=== PATIENT | male | born 1950 | race Caucasian/White ===

== ENCOUNTER 2018-08-13 20:03 | Emergency (ER) | payer MEDICARE ==
[~2018-08-13] VITALS: Ht 172.7 cm; Wt 90.7 kg
--- OUTSIDE RECORDS SUMMARY | ~2018-08-13 | XMS | Clinical Summary ---
Demographics + + + | Address | [address] | | | [place] [address] | + + + | Home Phone | | + + + | Preferred Language | Unknown | + + + | Marital Status | Unknown | + + + | Rastafari Affiliation | Unknown | + + + | Race | Unknown | + + + | Ethnic Group | Unknown | + + + Author + + + | Author | NON REVENUE LOCATIONS | + + + | Organization | NON REVENUE LOCATIONS | + + + | Address | Unknown | + + + | Phone | Unavailable | + + + Care Team Providers + +------+ + | Care Confectionery Drops Machine Operator Name | Role | Phone | + +------+ + PP | Unavailable | + +------+ + Source Comments CI[facility]RA is fully live on both [facility] and [facility] Allergies Not on File Medications Not on file Active Problems Not on file Social History + +-------+ +--------+------+ | Tobacco Use | Types | Packs/Day | Years | Date | | | | | Used | | + +-------+ +--------+------+ | Never Assessed | | | | | + +-------+ +--------+------+ + + + | Sex Assigned at | Date Recorded | | | | + + + | Not on file | | + + + + + + + | Job Start Date | Occupation | Industry | + + + + | Not on file | Not on file | Not on file | + + + + + + + + | Travel History | Travel Start | Travel End | + + + + + + | No recent travel history available. | + + Plan of Treatment + + + + + | Health Maintenance | Due Date | Last Done | Comments | + + + + + | Pneumococcal | | | | | vaccination (1 of 2 | 4 | | | | - PCV13) | | | | + + + + + | Influenza (Flu) | | | | | vaccination (Season | 9 | | | | Ended) | | | | + + + + + Results Not on filefrom Last 3 Months"
--- OUTSIDE RECORDS SUMMARY | ~2018-08-13 | XMS | Encounter Summary ---
Demographics + + + | Address | [address] | | | [place] [address] | + + + | Home Phone | | + + + | Preferred Language | Unknown | + + + | Marital Status | Unknown | + + + | Scientology Affiliation | Unknown | + + + | Race | Unknown | + + + | Ethnic Group | Unknown | + + + Author + + + | Author | [facility] | + + + | Organization | [facility] | + + + | Address | Unknown | + + + | Phone | Unavailable | + + + Care Team Providers + +------+ + | Care Parking Lot Chauffeur Name | Role | Phone | + +------+ + PCP | Unavailable | + +------+ + Encounter Details +--------+ + + + + | Date | Type | Department | Care Team | Description | +--------+ + + + + | 04/28/ | Outside | Neurophysiology | Jono Schwab DO | | | 2008 | Referral | EEG at [facility] [address] | [address] | | | | Order | [facility] | [place], [place] | | | | | Road Mailcode: | [address] | | | | | [address] | | | | | | [facility] | | | | | | [place], [place] | | | | | | [address] | | | | | | [phone] | | | +--------+ + + + + Social History + +-------+ +--------+------+ | Tobacco [...] recent travel history available. | + + documented as of this encounter Plan of Treatment Not on filedocumented as of this encounter Procedures + +--------+ + + + | Procedure Name | Priori | Date/Time | Associated Diagnosis | Comments | | | ty | | | | + +--------+ + + + | EEG ROUTINE | Routin | 04/28/2008 | | Results for this | | | e | | | procedure are in the | | | | | | results section. | + +--------+ + + + documented in this encounter Results EEG ROUTINE (04/28/2008) + + | Specimen | + + | | + + + + + | Narrative | Performed At | + + + | Patient Name: Sanjiv Markham Date of : 1950 Medical | | | Record Number: [id number] Date of Test: 04/28/2008 ROUTINE EEG | | | done at [facility] to evaluate for periodic movement. | | | Detail: With the patient awake, the backgroudn contained mostly | | | moderate amplitude, rhythmic, symmetric posterior rhythm contained | | | much moderate amplitude symmetric 16-20 hz activity consistent with | | | drug effect (alprazolam). There was some irregular that frequency | | | activity that increased during drowsiness but was consistently higher | | | in amplitude over the right temporal region. In addition, over the | | | right temporal region, there were occasional single sharp waves, | | | maximal and with phase reversal at F8, often with an aftergoing slow | | | waves. Impression: Abnormal EEG because of occasional right | | | temporal interictal epileptiform discharges and occasional right | | | temporal slowing. The EEG pattern raises the possibility of a | | | localization-related epilepsy. Davin Salas M.D. Professor, | | | Department of Neurology Clinical Neurophysiology Department | | + + + documented in this encounter Visit Diagnoses Not on filedocumented in this encounter"
--- OUTSIDE RECORDS SUMMARY | ~2018-08-13 | XMS | Encounter Summary ---
Demographics + + + | Address | [address] | | | [place] [address] | + + + | Home Phone | | + + + | Preferred Language | Unknown | + + + | Marital Status | Unknown | + + + | Tenriism Affiliation | Unknown | + + + | Race | Unknown | + + + | Ethnic Group | Unknown | + + + Author + + + | Author | [facility] | + + + | Organization | [facility] | + + + | Address | Unknown | + + + | Phone | Unavailable | + + + Care Team Providers + +------+ + | Care Solution Coordinator Name | Role | Phone | + +------+ + PCP | Unavailable | + +------+ + Encounter Details +--------+ + + + + | Date | Type | Department | Care Team | Description | +--------+ + + + + | 04/28/ | Outside | Neurophysiology | Jono Schwab DO | | | 2008 | Referral | EEG at [facility] [address] | [address] | | | | Order | [facility] | [place], [place] | | | | | Road Mailcode: | [address] | | | | | [address] | | | | | | [facility] | | | | | | [place], [place] | | | | | | [address] | | | | | | [phone] | | | +--------+ + + + [...] 1950 Medical | | | Record Number: [id number] Date of Test: 04/28/2008 ROUTINE EEG | | | done at [facility] to evaluate for periodic movement. | [...]
--- OUTSIDE RECORDS SUMMARY | ~2018-08-13 | XMS | Clinical Summary ---
Demographics + + + | Address | [address] | | | [place] [address] | + + + | Home Phone | | + + + | Preferred Language | Unknown | + + + | Marital Status | Unknown | + + + | Voodoo Affiliation | Unknown | + + + [...] Team Providers + +------+ + | Care Production Weigher Name | Role | Phone | + +------+ + PP | Unavailable | + +------+ + Source Comments CIERRA is fully live on both [facility] Ambulatory and [facility] InPatient.Pending Sale To [facility] Allergies Not on File Medications Not on [...]
[~2018-08-13 20:03] MED LIST: DAILY VITE1 EACH PO; DICLOFENAC SOD100 GM TOP; DONEPEZIL HCL10 MG PO; DRISDOL50000 UNIT PO; EMU OIL TOP; FLUOXETINE HCL10 MG PO; FLUOXETINE HCL20 MG PO; LAMICTAL100 MG PO; LAMOTRIGINE200 MG PO; RIVASTIGMINE4.5 MG PO; VITAMIN D10000 UNIT PO; VITAMIN D250000 UNIT PO
[2018-08-13] MEDS ORDERED: LAMICTAL XR100 MG PO (20:20)
[2018-08-13] MEDS ORDERED: NORCO 5-325 TA1 EACH PO (21:56)
== END 2018-08-14 00:59 | disposition home or self-care (01) ==
LOC: ED 20:03
DX: S20.221A Contusion of right back wall of thorax, initial encounter (principal); I10 Essential (primary) hypertension; F32.9 Major depressive disorder, single episode, unspecified; Z79.899 Other long term (current) drug therapy; W01.198A Fall on same level from slipping, tripping and stumbling with subsequent striking against other object, initial encounter
CPT/HCPCS: 71101; 74177; 80053; 81001; 85025; 96361; 96374; 96375; 99284-25; J1170; J2405; J7030; Q9967